=== PATIENT | male | born 1995 | race Two or more races ===

== ENCOUNTER 2025-09-17 19:50 | Emergency (ER) | payer OTHER, SELFPAY ==
[2025-09-17 19:50] VITALS: BMI 29.0
[2025-09-17 20:01] VITALS: BP 125/86; PULSE 80; RESP 18; TEMP 36.7; O2SAT 98
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
[2025-09-17] MEDS: HYDROcodone/APAP 5/325 TABLET 1 TAB PO (22:01)
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
== END 2025-09-17 22:07 | disposition home or self-care (01) ==
PROVIDERS: Emergency Provider Emergency Medicine
DX: S33.5XXA Sprain of ligaments of lumbar spine, initial encounter (principal); S23.3XXA Sprain of ligaments of thoracic spine, initial encounter; S13.4XXA Sprain of ligaments of cervical spine, initial encounter; V43.52XA Car driver injured in collision with other type car in traffic accident, initial encounter
CPT/HCPCS: 72040; 72070; 72072; 72100; 99282; A9270